=== PATIENT | female | born 1985 | race Caucasian/White ===

== ENCOUNTER 2019-02-02 12:59 | Emergency (ER) | payer MEDICARE ==
[~2019-02-02] VITALS: Ht 167.6 cm; Wt 55.3 kg
[2019-02-02 13:36] LABS: BILIRUBIN,URINE NEGATIVE (NEG); CLARITY,URINE CLEAR; COLOR,URINE YELLOW; NITRITE,URINE NEGATIVE (NEG); PROTEIN,URINE NEGATIVE (NEG-TRACE)
[2019-02-02 13:44] LABS: SQUAMOUS EPITHELIAL CELL,UR MOD /LPF
[2019-02-02 13:45] LABS: BACTERIA,URINE 0 /HPF (0-FEW); RBC,URINE TNTC /HPF (0-2)
[2019-02-02 14:43] LABS: BASO % 1 % (0-3); EOS # 0.1 x10^3/uL (0.0-0.7); EOS % 2 % (0-3); HEMATOCRIT 42.3 % (36.0-47.0); HEMOGLOBIN 14.3 g/dL (12.0-15.5); LYMPH # 2.1 x10^3/uL (1.0-4.8); LYMPH % 27 % (24-48); MEAN CORPUSCULAR HEMOGLOBIN 29 pg (25-35); MEAN CORPUSCULAR HGB CONC 34 g/dL (31-37); MEAN CORPUSCULAR VOLUME 86 fL (79-100); MONO # 0.5 x10^3/uL (0.0-1.1); MONO % 6 % (0-9); NEUT % 65 % (31-73); PLATELET COUNT 210 x10^3/uL (140-400); RED BLOOD COUNT 4.91 x10^6/uL (3.50-5.40); RED CELL DISTRIBUTION WIDTH 12.9 % (11.5-14.5); WHITE BLOOD COUNT 7.8 x10^3/uL (4.0-11.0)
--- NOTE | 2019-02-02 15:06 | RAD ---
INDICATION: Vaginal bleeding COMPARISON: None. TECHNIQUE: Grayscale and color ultrasound images uterus and adnexa. Transabdominal and transvaginal images obtained. Transvaginal images were needed to better visualize structures that were limited on transabdominal imaging. FINDINGS: Uterus: 79 x 49 x 34 mm. Endometrial Stripe: 2 mm. Right Ovary: 41 x 34 x 27 mm. Approximately 20 cc Left Ovary: 46 x 38 x 27 mm. Approximately 25 cc Vascular flow identified to bilateral ovaries. Small free fluid in the pelvis. Suspected nabothian cyst. There are some prominent vessels within the left greater than right pelvis. 19 x 9 x 17 mm suspected complex cyst left ovary. IMPRESSION: * Vascular flow seen to the bilateral ovaries. * There is some peripheral follicles seen within the ovaries with increased ovarian volume. This is a nonspecific finding however can be seen with polycystic ovaries. * Prominent vessels in the adnexa. Would correlate for possible causes such as pelvic congestion. Electronically signed by: Eddie Sinha MD (02/02/2019 3:03 PM) [facility]
[2019-02-02 15:19] VITALS: BP 117/81
--- NOTE | 2019-02-02 15:57 | PHYS DOC ---
Past Medical History Past Medical History: Anxiety, Bipolar, Depression Alcohol Use: Rarely Drug Use: None Adult General Chief Complaint Chief Complaint: VAGINAL BLEEDING HPI HPI Patient is a 33 year old female with history of PCOS, anxiety, depression, bipolar, who presents to the ED today complaining of vaginal bleeding that began 3 days ago. Patient states she's not had a menstrual cycle 2 years and this was a surprise for her. She is also complaining of mild cramping to her lower abdomen denies any chance she is . Denies any urgency frequency dysuria. Denies any concerns for STDs. Review of Systems Review of Systems Constitutional: Denies fever or chills [] Eyes: Denies change in visual acuity, redness, or eye pain [] HENT: Denies nasal congestion or sore throat [] Respiratory: Denies cough or shortness of breath [] Cardiovascular: No additional information not addressed in HPI [] GI: Reports abdominal cramping, vaginal bleeding, denies, nausea, vomiting, bloody stools or diarrhea [] : Denies dysuria or hematuria [] Musculoskeletal: Denies back pain or joint pain [] Integument: Denies rash or skin lesions [] Neurologic: Denies headache, focal weakness or sensory changes [] All other systems were reviewed and found to be within normal limits, except as documented in this note. Allergies Allergies Allergies Coded Allergies Type Severity Reaction Last Updated Verified Penicillins Adverse Reaction Intermediate 02/02/19 Yes Physical Exam Physical Exam Constitutional: Well developed, well nourished, no acute distress, non-toxic appearance. [] HENT: Normocephalic, atraumatic, bilateral external ears normal, oropharynx moist, no oral exudates, nose normal. [] Eyes: PERRLA, EOMI, conjunctiva normal, no discharge. [] Neck: Normal range of motion, no tenderness, supple, no stridor. [] Cardiovascular:Heart rate regular rhythm, no murmur [] Lungs & Thorax: Bilateral breath sounds clear to auscultation [] Abdomen: Bowel sounds normal, soft, no tenderness, no masses, no pulsatile masses. [] Pelvic exam External pelvic appears normal, cervix is visualized, closed, no CMT, small amount of bright red blood in the vaginal no adnexal tenderness. Skin: Warm, dry, no erythema, no rash. [] Back: No tenderness, no CVA tenderness. [] Extremities: No tenderness, no cyanosis, no clubbing, ROM intact, no edema. [] Neurologic: Alert and oriented X 3, normal motor function, normal sensory function, no focal deficits noted. [] Psychologic: Affect normal, judgement normal, mood normal. [] Current Patient Data Vital Signs Vital Signs Date Time Temp Pulse Resp B/P (MAP) Pulse Ox O2 Delivery O2 Flow Rate FiO2 02/02/19 13:18 97.7 77 16 131/84 (100) 100 Room Air 97.7 Lab Values Laboratory Tests Test 02/02/19 13:25 02/02/19 14:26 Urine Collection Type Unknown Urine Color Yellow Urine Clarity Clear Urine pH 7.0 Urine Specific [place] <=1.005 Urine Protein Negative mg/dL (NEG-TRACE) Urine Glucose (UA) Negative mg/dL (NEG) Urine Ketones (Stick) Negative mg/dL (NEG) Urine Blood Large (NEG) Urine Nitrite Negative (NEG) Urine Bilirubin Negative (NEG) Urine Urobilinogen Dipstick 1.0 mg/dL (0.2 mg/dL) Urine Leukocyte Esterase Trace (NEG) Urine RBC Tntc /HPF (0-2) Urine WBC 5-10 /HPF (0-4) Urine Squamous Epithelial Cells Mod /LPF Urine Bacteria 0 /HPF (0-FEW) White Blood Count 7.8 x10^3/uL (4.0-11.0) Red Blood Count 4.91 x10^6/uL (3.50-5.40) Hemoglobin 14.3 g/dL (12.0-15.5) Hematocrit 42.3 % (36.0-47.0) Mean Corpuscular Volume 86 fL (79-100) Mean Corpuscular Hemoglobin 29 pg (25-35) Mean Corpuscular Hemoglobin Concent 34 g/dL (31-37) Red Cell Distribution Width 12.9 % (11.5-14.5) Platelet Count 210 x10^3/uL (140-400) Neutrophils (%) (Auto) 65 % (31-73) Lymphocytes (%) (Auto) 27 % (24-48) Monocytes (%) (Auto) 6 % (0-9) Eosinophils (%) (Auto) 2 % (0-3) Basophils (%) (Auto) 1 % (0-3) Neutrophils # (Auto) 5.0 x10^3/uL (1.8-7.7) Lymphocytes # (Auto) 2.1 x10^3/uL (1.0-4.8) Monocytes # (Auto) 0.5 x10^3/uL (0.0-1.1) Eosinophils # (Auto) 0.1 x10^3/uL (0.0-0.7) Basophils # (Auto) 0.0 x10^3/uL (0.0-0.2) Laboratory Tests 02/02/19 14:26 Microbiology 02/02/19 Wet Prep - Final, Complete EKG EKG [] Radiology/Procedures Radiology/Procedures []PROCEDURE: PELVIS W/TV INDICATION: Vaginal bleeding COMPARISON: None. TECHNIQUE: Grayscale and color ultrasound images uterus and adnexa. Transabdominal and transvaginal images obtained. Transvaginal images were needed to better visualize structures that were limited on transabdominal imaging. FINDINGS: Uterus: 79 x 49 x 34 mm. Endometrial Stripe: 2 mm. Right Ovary: 41 x 34 x 27 mm. Approximately 20 cc Left Ovary: 46 x 38 x 27 mm. Approximately 25 cc Vascular flow identified to bilateral ovaries. Small free fluid in the pelvis. Suspected nabothian cyst. There are some prominent vessels within the left greater than right pelvis. 19 x 9 x 17 mm suspected complex cyst left ovary. IMPRESSION: * Vascular flow seen to the bilateral ovaries. * There is some peripheral follicles seen within the ovaries with increased ovarian volume. This is a nonspecific finding however can be seen with polycystic ovaries. * Prominent vessels in the adnexa. Would correlate for possible causes such as pelvic congestion. Electronically signed by: Faby Sinha MD (02/02/2019 3:03 PM) [facility] DICTATED and SIGNED BY: FABY SINHA MD DATE: 02/02/19 3063 Course & Med Decision Making Course & Med Decision Making Pertinent Labs and Imaging studies reviewed. (See chart for details) This is a 33-year-old female patient presenting to the ED today with complaints of vaginal bleeding that began 3 days ago. He shouldn't has PCOS and had not had a cycle for 2 years. CBC with a normal WBC, normal hemoglobin and hematocrit. Urine analysis is negative for infection. Wet prep with no acute findings. Pelvic ultrasound noted for PCO & pelvic congestion. Discharged to home. Provided OB for follow-up. Dragon Disclaimer Dragon Disclaimer This electronic medical record was generated, in whole or in part, using a voice recognition dictation system. Departure Departure Impression: Primary Impression: Dysfunctional uterine bleeding Disposition: HOME, SELF-CARE Condition: STABLE Referrals: NO PCP (PCP) MALIKA DE LEON MD Follow-up with the provided [employer] in 1-2 weeks Patient Instructions: Uterine Bleeding, Dysfunctional, [id number] Additional Instructions: You were dilated in the emergency room for vaginal bleeding. We provided you an [employer], contact the follow-up. Your work up in the emergency room was negative for any acute findings. TERRA BENJAMIN APRN Feb 02, 2019 15:57
[2019-02-03 18:11] LABS: GC PROBE Negative (Negative)
== END 2019-02-02 16:00 | disposition home or self-care (01) ==
LOC: ER 12:59
DX: N93.8 Other specified abnormal uterine and vaginal bleeding (principal); F31.9 Bipolar disorder, unspecified; F41.9 Anxiety disorder, unspecified; Z88.0 Allergy status to penicillin
CPT/HCPCS: 36415; 76830; 76856; 81001; 85025; 87491; 87591; 99285; Q0111; 99283